=== PATIENT | female | born 1950 | race Caucasian/White ===

== ENCOUNTER 2017-01-13 16:46 | Emergency (ER) | payer MEDICARE, MEDICAID ==
[~2017-01-13 16:46] MED LIST: APAP/HYDROCODON1 T13 PO; ASPIR LOW81 MG PO; ATORVASTATIN CA80 M1 PO; COL100 PO; EC NAPROSYN500 MG PO; GLIPIZIDE10 MG PO; JARDIANCE25 MG PO; LISINOPRIL/HYDR1 TA1 PO; LORATADINE10 MG PO; METFORMIN HCL500 MG PO; OMEPRAZOLE40 M1 PO; OYSTER SHELL CA PO
[2017-01-13 17:24] LABS: BASOPHIL % 0.3 % (0-2); PLATELET COUNT 307 x10^3mcL (130-400); RED CELL DISTRIBUTION WIDTH 14.1 % (11.5-14.5)
[2017-01-13 17:35] LABS: CALCIUM 9.4 mg/dL (8.5-10.1); CARBON DIOXIDE 23.9 mmol/L (21-32); CREATININE SERUM 1.2 mg/dL (0.6-1.0); POTASSIUM SERUM 3.7 mmol/L (3.5-5.1)
[2017-01-13 17:40] LABS: ALBUMIN 3.5 g/dL (3.4-5.0); BILIRUBIN TOTAL 0.63 mg/dL (0.20-1.00); TOTAL PROTEIN, SERUM 7.5 g/dL (6.4-8.2)
[2017-01-13 20:05] VITALS: BP 114/76
== END 2017-01-13 20:05 | disposition home or self-care (01) ==
LOC: ED 16:46
PROVIDERS: Emergency Medicine
DX: R20.2 Paresthesia of skin (principal); R51 Headache; I10 Essential (primary) hypertension; E11.9 Type 2 diabetes mellitus without complications
CPT/HCPCS: 36415; 83880